=== PATIENT | male | born 1960 | race Caucasian/White ===

== ENCOUNTER 2020-04-10 17:54 | Emergency (ER) | payer OTHER ==
[2020-04-10 18:03] VITALS: BP 123/76; PULSE 70; TEMP 98; BMI 24.1
[2020-04-10] MEDS ORDERED: KETOROLAC TROMETHAMINE 60 MG/2 ML VIAL IM ONE (18:03)
--- NOTE | 2020-04-10 18:04 | PDOC ---
Rapid Medical Evaluation Chief Complaint: Injury Time Seen by Provider: 04/10/20 17:58 Medical Evaluation: Allergies Allergy/AdvReac Type Severity Reaction Status Date / Time No Known Allergies Allergy Verified 04/10/20 17:58 04/10/20 17:58 Pt presents with shoulder pain for the past three days. 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 Pt is R hand dominant Exam: TTP of the R trapezius Orders: torodol Pt to proceed to the ER for further evaluation Discharge Disposition - Diagnosis Shoulder pain Qualifiers: Chronicity: acute Laterality: right Qualified Code(s): M25.511 - Pain in right shoulder - Referrals - Patient Instructions - Post Discharge Activity
[2020-04-10] MEDS ORDERED: KETOROLAC TROMETHAMINE 30 MG/1 ML VIAL ONE (18:08)
[2020-04-10] MEDS ORDERED: CYCLOBENZAPRINE HCL 10 MG TABLET (FP) PO ONE (18:29)
[2020-04-10] MEDS ORDERED: LIDOCAINE 5% TOPICAL PATCH TP ONE (18:29)
[2020-04-10] MEDS ORDERED: CYCLOBENZAPRINE HCL 10 MG TABLET (FP) ONE (18:40)
[2020-04-10] MEDS ORDERED: LIDOCAINE 5% TOPICAL PATCH ONE (18:40)
--- NOTE | 2020-04-10 18:46 | PDOC ---
History of Present Illness - General Chief Complaint: Injury Stated Complaint: R/SCAPULA/INJURY Time Seen by Provider: 04/10/20 17:58 History Source: Patient Exam Limitations: No Limitations - History of Present Illness Initial Comments: 04/10/20 18:41 Patient is a 60-year-old male with a history of HIV who presents to the ED with complaint of right scapular pain that he has had for roughly 1 week. He states the pain started after cutting weeds at his mother's house. He has tried taking Naprosyn without any relief. He states the pain is not exacerbated with moving his shoulder. He denies any numbness or tingling. He does state that the pain radiates to his neck. The pain waxes and wanes with intermittent sharpness. He denies any medication allergies but states he is allergic to pollen. Past History - Medical History Allergies/Adverse Reactions: Allergies Allergy/AdvReac Type Severity Reaction Status Date / Time No Known Allergies Allergy Verified 04/10/20 17:58 Home Medications: Ambulatory Orders Cyclobenzaprine HCl [Flexeril 10 mg] 10 mg PO BID PRN #20 tablet 04/10/20 Lidocaine 5% Patch [Lidoderm Patch -] 1 patch TP DAILY PRN #7 patch 04/10/20 - Psycho-Social/Smoking History Smoking History: Never smoked Information on smoking cessation initiated: No - Substance Abuse Hx (Audit-C & DAST Scrn) How often the patient has a drink containing alcohol: Never Score: In Men: 4 or > Positive; In Women: 3 or > Positive: 0 Screen Result (Pos requires Nsg. Audit-10AR): Negative In the last yr the pt used illegal drug/Rx for NonMed reason: No Score: Yes response is considered Positive: 0 Screen Result (Positive result requires Nsg. DAST-10): Negative Review of Systems - Review of Systems Comments:: 04/10/20 18:42 - Review of Systems Able to Perform ROS?: Yes Constitutional: No: Fever, Chills, Loss of Appetite, Night Sweats, Weakness HEENTM: No: Eye Pain, Vision changes, Ear Pain, Throat Pain, Throat Swelling, Mouth Pain, Difficulty Swallowing Respiratory: No: Cough, Shortness of Breath, Wheezing, Sputum Production Cardiac (ROS): No: Chest Pain, Chest Tightness, Palpitations, Irregular Heart Beat, Edema ABD/GI: No: Nausea, Vomiting, Abdominal Pain, Diarrhea : No Dysuria, No Hematuria, No Frequency, No Urgency Musculoskeletal: No: Muscle Pain, Back Pain, Joint Pain, Muscle Weakness, Neck Pain; positive right scapular pain Integumentary: No: Lesions, Rash Neurological: No: Headache, Numbness, Tingling, Weakness, Speech Difficulties *Physical Exam - Vital Signs Last Vital Signs Temp Pulse Resp BP Pulse Ox 98.0 F 70 16 123/76 99 04/10/20 17:58 04/10/20 17:58 04/10/20 17:58 04/10/20 17:58 04/10/20 17:58 - Physical Exam 04/10/20 18:42 - Physical Exam General Appearance: Nourished, Appropriately Dressed, No Distress HEENT: EOMI, Normal Voice, Hearing Grossly Normal Neck: Supple, No Lymphadenopathy (R), No Lymphadenopathy (L), No Rigidity, No Decreased range of motion Respiratory/Chest: Lungs Clear, Normal Breath Sounds. No Respiratory Distress, No Accessory Muscle Use Cardiovascular: Regular Rhythm, Regular Rate, S1, S2 Musculoskeletal: Normal Inspection. No Decreased Range of Motion; tenderness to palpation over the right trapezius muscle. No tenderness over the scapula. Full range of motion of the right shoulder. Forward flexion to 180 degrees actively. Internal rotation to the lower thoracic spine with negative liftoff. No midline cervical or thoracic back tenderness to palpation. Extremity: Normal Capillary Refill, Normal Inspection Integumentary: Normal Color, Dry. 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 given -Patient to be discharged with lidocaine patches and Flexeril. He has been made aware that he should not take Naprosyn until tomorrow as the Toradol will last roughly 12 hours. He should do gentle stretching exercises to help keep the muscles warm. He will follow-up with his primary doctor within 1 to 2 days for repeat evaluation. He understands and agrees with this treatment plan and he is stable for discharge. Discharge - Discharge Information Problems reviewed: Yes Clinical Impression/Diagnosis: Trapezius muscle spasm Shoulder pain Qualifiers: Chronicity: acute Laterality: right Qualified Code(s): M25.511 - Pain in right shoulder Condition: Stable Disposition: HOME - Additional Discharge Information Prescriptions: Cyclobenzaprine HCl [Flexeril 10 mg] 10 mg PO BID PRN #20 tablet PRN Reason: Muscle Spasms Lidocaine 5% Patch [Lidoderm Patch -] 1 patch TP DAILY PRN #7 patch PRN Reason: Pain - Follow up/Referral Referrals: Liz Wong [Primary Care Provider] - 2 Days - Patient Discharge Instructions Patient Printed Discharge Instructions: DI for Muscle Spasm Additional Instructions: Use Lidoderm patches as prescribed but be sure to keep it off for 12 hours prior to applying a new one. Take the Flexeril, muscle relaxer, as prescribed but use only as needed. You can continue to take Naprosyn but do not take another dose until tomorrow morning as you were given a long-acting anti-inflammatory in the emergency department today. Do gentle stretching exercises as this will keep the muscles warm and resolve the muscle spasm. You can alternate ice and heat as well. Follow-up with your primary doctor within 1 to 2 days for repeat evaluation. - Post Discharge Activity
[2020-04-10] MEDS ORDERED: LIDOCAINE PATCH REMOVAL MC SCH (22:00)
== END 2020-04-10 18:57 | disposition home or self-care (01) ==
LOC: JERFT 17:54 → EDBD 17:54 → JERFT 18:57
PROC: 3E0233Z Introduction of Anti-inflammatory into Muscle, Percutaneous Approach (ICD-10-PCS; principal; 2020-04-10)
DX: M25.511 Pain in right shoulder (principal)
CPT/HCPCS: 99284-25